=== PATIENT | female | born 1945 | race Caucasian/White ===

== ENCOUNTER → 2017-02-17 | Outpatient (CLI) | payer OTHER, BC ==
[~2017-02-17] MED LIST: ASPCH81X PO; CHOLTAB3 PO; EZET10TA63 PO; KRIL1CAP7 PO; MELO7.5T5 PO; MISCTAB78 PO; MULT-506; OXYB10TA13 PO; VITAMIN B12 PO; [UNRECOGNIZED DRUG - OTHER] PO
--- NOTE | 2017-02-18 08:27 | MAMMOGRAPHY REPORT ---
BILATERAL DIGITAL SCREENING MAMMOGRAM WITH CAD: 02/17/2017 CLINICAL HISTORY: Routine screening. Patient has no complaints. TECHNIQUE: Bilateral CC, MLO and repeat right MLO views were obtained. Current study was also evalu ated with a Computer Aided Detection (CAD) system. COMPARISON: Comparison is made to exams dated: 02/15/2016 mammogram, 02/13/2015 mammogram, 02/09/2014 mammogram, 01/18/2013 mammogram, 01/06/2011 mammogram, and 01/15/2012 mammogram - [facility]. BREAST COMPOSITION: The tissue of both breasts is heterogeneously dense, which may obscure small ma sses. FINDINGS: There are benign calcifications within the left breast. No new suspicious mass, architectural designer ural distortion or cluster of microcalcifications is seen. IMPRESSION: ACR BI-RADS CATEGORY 1: NEGATIVE There is no mammographic evidence of malignancy. A 1 year screening mammogram is recommended. The p atient will receive written notification of the results. Approximately 10% of breast cancers are not detected with mammography. A negative mammographic repor t should not delay biopsy if a clinically suggestive mass is present. Joan Penny M.D. ay/:02/17/2017 15:52:39 Pharmacy Data Analyst: Cary OLIVEIRA(Arpan)(M), [facility] letter sent: Normal 1/2 BI-RADS Code: ACR BI-RADS Category 1: Negative
== END | disposition home or self-care (01) ==
LOC: C.MAMM 08:38
PROVIDERS: ATTEND Nurse Practitioner
DX: Z12.31 Encounter for screening mammogram for malignant neoplasm of breast (principal)

== ENCOUNTER → 2017-07-27 | Outpatient (CLI) | payer OTHER, BC ==
[~2017-07-27] MED LIST changes: -ASPCH81X PO; -KRIL1CAP7 PO; -MISCTAB78 PO; -OXYB10TA13 PO; -VITAMIN B12 PO; -[UNRECOGNIZED DRUG - OTHER] PO
[2017-07-27 17:52] LABS: URINE APPEARANCE CLEAR (CLEAR); URINE BILIRUBIN NEG (NEG); URINE COLOR YELLOW; URINE NITRITE NEG (NEG); URINE SPECIFIC GRAVITY 1.022 (1.000-1.030); UROBILINOGEN NEG (NEG)
[2017-07-27 17:56] LABS: MANUAL MICROSCOPIC REQUIRED? NO; REVIEW REQ? NO
== END | disposition home or self-care (01) ==
LOC: C.LABSPEC 09:56
PROVIDERS: ATTEND Physician Assistant Medical
DX: R39.9 Unspecified symptoms and signs involving the genitourinary system (principal)

== ENCOUNTER → 2017-09-29 | Outpatient (CLI) | payer OTHER, BC ==
[~2017-09-29] MED LIST changes: +ASPCH81X PO; -CHOLTAB3 PO; -EZET10TA63 PO; +KRIL1CAP7 PO; -MELO7.5T5 PO; +MISCTAB78 PO; -MULT-506; +OXYB10TA13 PO; +VITAMIN B12 PO; +[UNRECOGNIZED DRUG - OTHER] PO
[2017-09-29 12:26] LABS: AST/SGOT 16 U/L (15-37); BLOOD UREA NITROGEN 24 mg/dl (7-18); BUN/CREATININE RATIO 21.7 (10-20); CALCIUM 9.3 mg/dl (8.5-10.1); CARBON DIOXIDE 28 mmol/L (21-32); CHLORIDE 104 mmol/L (98-107); CREATININE 1.09 mg/dl (0.60-1.20); GLUCOSE 100 mg/dl (70-99); POTASSIUM 4.7 mmol/L (3.5-5.1); SODIUM 137 mmol/L (136-145)
[2017-09-29 12:30] LABS: ALB/GLOB RATIO 1.2 (0.9-2); ALKALINE PHOSPHATASE 71 U/L (45-117); ALT/SGPT 29 U/L (12-78); CHOLESTEROL 230 mg/dl (0-200); CHOLESTEROL/HDL RATIO 4.7; ESTIMATED AVERAGE GLUCOSE 114 mg/dl; HA1C FLAG Normal (Normal); HDL CHOLESTEROL 49 mg/dl; LDL CHOLESTEROL CALCULATED 138 mg/dl; TRIGLYCERIDES 215 mg/dl (0-150); VERY LOW DENSITY LIPOPROT CALC 43 mg/dl
== END | disposition home or self-care (01) ==
LOC: C.LABBFT 07:38
PROVIDERS: ATTEND Nurse Practitioner
DX: R73.01 Impaired fasting glucose (principal); E78.00 Pure hypercholesterolemia, unspecified

== ENCOUNTER → 2017-10-06 | Day surgery (SDC) | payer OTHER, BC ==
[2017-09-23 12:15] VITALS: Ht 166.4 cm; Wt 84.1 kg
[~2017-10-06] VITALS: Ht 166.4 cm; Wt 84.1 kg
[~2017-10-06] MED LIST changes: +LIDOCAINE HCL 2% 2 ML VIAL (20MG/ML) ONE; +PROPOFOL IV EMULSION 10 MG/ML 20 ML VIAL IV ONE; +SODIUM CHLORIDE 0.9% 500ML 500 ML IV ONE
[2017-10-06 09:48] VITALS: TEMP 36.5
--- NOTE | 2017-10-06 10:26 | Endo History and Physical ---
History & Physical Date of Service: Oct 06, 2017. Chief Complaint: screening Referring Physician: Winnie WHEAT History of Present Illness 71 yo CF who presents for screening colonoscopy. Past Surgical History Hx Cardiac Surgery: No Hx Internal Defibrillator: No Hx Pacemaker: No Hx Abdominal Surgery: Yes (TAHBSO) Hx of Implantable Prosthesis: No Hx Post-Op Nausea and Vomiting: No Hx Cancer Surgery: No Hx Thoracic Surgery: No Hx Orthopedic: No Hx Urinary Tract Surgery: No Family History None Social History Smoking Status: Never Smoker Hx Substance Use: No Hx Alcohol Use: No Allergies Coded Allergies: Statins (Verified Allergy, Unknown, CHEST PAIN, 09/23/17) Current Medications Reported Home Medications Medications Dose Route/Sig Max Daily Dose Days Date Category [Ultranol] 1 Cap PO QAM 09/23/17 Reported Osteo Bi-Flex Advanced Do (Misc Natural Products) 1 Tab Tab 1 Tab PO QAM 09/23/17 Reported Aspirin Chewable (Aspirin) 81 Mg Chew 81 Mg PO QAM 09/23/17 Reported Krill Oil [employer]-3 (Krill Oil) 1 Cap Cap 1 Cap PO QAM 09/23/17 Reported [Vitamin B12] 2,500 Mcg PO QAM 09/23/17 Reported Ditropan Xl (Oxybutynin Chloride) 10 Mg Tab 10 Mg PO 3XWK 09/23/17 Reported Vital Signs Weight (Kilograms): 84.09 Height (Feet): 5 Height (Inches): 5.5 Date Time Temp Pulse Resp B/P (MAP) Pulse Ox O2 Delivery O2 Flow Rate FiO2 10/06/17 09:48 36.5 67 20 158/79 (105) 95 Room Air Physical Exam General Appearance: WD/WN, no apparent distress Respiratory/Chest: Auscultation: breath sounds normal Cardiovascular: Heart Auscultation: RRR Abdomen: Bowel Sounds: normal Inspection & Palpation: soft, non-distended, no tenderness, guarding & rebound Assessment and Plan Assessment: 71 yo CF who presents for screening colonoscopy. Plan: Proceed with colonoscopy.
--- NOTE | 2017-10-06 11:22 | Discharge Instructions ---
Endoscopy Patient Instructions Date / Procedure(s) Performed Oct 06, 2017. Colonoscopy Allergy Information Coded Allergies: Statins (Verified Allergy, Unknown, CHEST PAIN, 09/23/17) Discharge Date / Findings Oct 06, 2017. Internal hemorrhoids Medication Instructions Stopped Medication(s): took ASA yesterday OK to resume all medications today as prescribed Reported Home Medications Medications Dose Route/Sig Max Daily Dose Days Date Category [Ultranol] 1 Cap PO QAM 09/23/17 Reported Osteo Bi-Flex Advanced Do (Misc Natural Products) 1 Tab Tab 1 Tab PO QAM 09/23/17 Reported Aspirin Chewable (Aspirin) 81 Mg Chew 81 Mg PO QAM 09/23/17 Reported Krill Oil [employer]-3 (Krill Oil) 1 Cap Cap 1 Cap PO QAM 09/23/17 Reported [Vitamin B12] 2,500 Mcg PO QAM 09/23/17 Reported Ditropan Xl (Oxybutynin Chloride) 10 Mg Tab 10 Mg PO 3XWK 09/23/17 Reported Provider Instructions Activity Restrictions - No exercising or heavy lifting for 24 hours. - Do not drink alcohol the day of the procedure. - Do not drive a car or operate machinery until the day after the procedure. - Do not make any important decisions or sign important papers in 24 hours after the procedure. Following Day: - Return to full activity which may include returning to work/school. Diet Start your diet with liquids and light foods (jello, soup, juice, toast). Then eat your usual diet if not nauseated. Treatment For Common After Affects For mild abdominal pain, bloating, or excessive gas: - Rest - Eat lightly - Lie on right side Follow-Up Information Follow-up with Winnie WHEAT as scheduled Anesthesia Information What You Should Know You have had a procedure that required some medicine to reduce anxiety and discomfort. This treatment is called moderate sedation. After receiving the treatment, you may be sleepy, but you will be able to breathe on your own. The effects of the treatment may last for several hours. Follow these instructions along with Activity/Diet recommendations noted above: * Do NOT do anything where dizziness or clumsiness would be dangerous. * Rest quietly at home today, then you can be up and about tomorrow. * Have a responsible person stay with you the rest of today. * You may have had an I.V. today. If so, you may take the dressing off later today. Recommendations Call your doctor if: * Trouble breathing * Continuous vomiting for more than 24 hours * Temperature above 101 degrees * Severe abdominal pain or bloating * Pain not relieved by pain medicine ordered * There is increased drainage or redness from any incision * A large amount of rectal bleeding greater than 2-3 tablespoons. (If you had a polyp/s removed or have hemorrhoids, a small amount of blood - from the rectum is to be expected.) * You have any unanswered questions or concerns. IN THE EVENT OF A SERIOUS EMERGENCY, GO TO THE NEAREST EMERGENCY ROOM Your discharge instructions were prepared by provider Wilber Maynard. Patient Instructions Signature Page Alissa Santiago Patient (or Guardian) Signature/Date: I have read and understand the instructions given to me by my caregivers. Caregiver/RN/Doctor Signature/Date: The above-named patient and/or guardian has received patient instructions on this date. + Original Patient Signature Page (only) stays with chart. Please make copy for patient.
--- NOTE | 2017-10-06 11:26 | GI REPORT ---
Procedure Date: 10/06/2017 10:42 AM Procedure: Colonoscopy Indications: Screening for colorectal malignant neoplasm Medicines: Monitored Anesthesia Care Complications: No immediate complications. Estimated Blood Loss: Estimated blood loss: none. Procedure: Pre-Anesthesia Assessment: - Prior to the procedure, a History and Physical was performed, and patient medications and allergies were reviewed. The patient's tolerance of previous anesthesia was also reviewed. The risks and benefits of the procedure and the sedation options and risks were discussed with the patient. All questions were answered, and informed consent was obtained. Prior Anticoagulants: The patient has taken aspirin, last dose was 1 day prior to procedure. ASA Grade Assessment: II - A patient with mild systemic disease. After reviewing the risks and benefits, the patient was deemed in satisfactory condition to undergo the procedure. After I obtained informed consent, the scope was passed under direct vision. Throughout the procedure, the patient's blood pressure, pulse, and oxygen saturations were monitored continuously. The Scope was introduced through the anus and advanced to the terminal ileum. The colonoscopy was performed without difficulty. The patient tolerated the procedure well. The quality of the bowel preparation was good. The terminal ileum, the ileocecal valve and the appendiceal orifice were photographed. Findings: The perianal and digital rectal examinations were normal. Non-bleeding internal hemorrhoids were found during retroflexion. The hemorrhoids were small. Impression: - Non-bleeding internal hemorrhoids. - No specimens collected. Recommendation: - Resume previous diet. - Continue present medications. - No repeat colonoscopy due to age and the absence of advanced adenomas. - Return to primary care physician as previously scheduled. Wilber Maynard, 10/06/2017 11:25:36 AM This report has been signed electronically. Note Initiated On: 10/06/2017 10:42 AM I attest to the content of the Intraoperative Record and orders documented therein, exceptions below
--- NOTE | 2017-10-06 11:34 | Anesthesiology Progress Note ---
Anesthesia Post Op Note Date & Time Oct 06, 2017 at 11:33 Vital Signs Pain Intensity: 0 Vital Signs Past 12 Hours Date Time Temp Pulse Resp B/P (MAP) Pulse Ox O2 Delivery O2 Flow Rate FiO2 10/06/17 11:24 82 16 123/67 (85) 98 Room Air 10/06/17 09:48 36.5 67 20 158/79 (105) 95 Room Air Notes Mental Status: alert / awake / arousable, participated in evaluation Pt Amnestic to Procedure: Yes Nausea / Vomiting: adequately controlled Pain: adequately controlled Airway Patency, RR, SpO2: stable & adequate BP & HR: stable & adequate Hydration State: stable & adequate Anesthetic Complications: no major complications apparent
[2017-10-06 11:53] VITALS: BP 122/81; PULSE 68; O2SAT 97
== END | disposition home or self-care (01) ==
LOC: C.GI 08:59
PROVIDERS: ATTEND Internal Medicine
DX: Z12.11 Encounter for screening for malignant neoplasm of colon (principal); K64.8 Other hemorrhoids; Z79.82 Long term (current) use of aspirin

== ENCOUNTER → 2018-01-21 | Outpatient (CLI) | payer OTHER, BC ==
[~2018-01-21] VITALS: Ht 167.6 cm; Wt 85.4 kg
[~2018-01-21] MED LIST changes: -LIDOCAINE HCL 2% 2 ML VIAL (20MG/ML) ONE; -PROPOFOL IV EMULSION 10 MG/ML 20 ML VIAL IV ONE; -SODIUM CHLORIDE 0.9% 500ML 500 ML IV ONE
[2018-01-21 09:39] VITALS: BP 155/69; PULSE 63; Ht 167.6 cm; Wt 85.4 kg
== END | disposition home or self-care (01) ==
LOC: C.NEUR 08:56
PROVIDERS: ATTEND Internal Medicine Pulmonary Disease
DX: G47.33 Obstructive sleep apnea (adult) (pediatric) (principal); F41.9 Anxiety disorder, unspecified

== ENCOUNTER → 2018-01-26 | Outpatient (CLI) | payer OTHER, BC ==
--- NOTE | 2018-01-27 05:29 | PAP/PSG TECHNICIAN REPORT ---
[facility] Aluminum Pourer Polysomnogram Report Study name: None Report date: 01/27/2018 Study date: 01/26/2018 Referring Physician: Dr. Connor Moran DO Name: LISSA DAVISON Interpreting Physician: Connor Moran D.O. Date of : 1945 Aluminum Pourer: Yenni Cloud RPSGT. Sex: Female Age: 72 Study Type: PSG Weight: 188 lbs Height: 72 years, Height 5' 6" BMI: 30.34 Medications: ASPIRIN 81 MG, OSTEO-BIFLEX, FISH OIL, OXYBUTYNIN CHLORIDE 10 MG, VIT D 2000 UNIT Patient History 72 yr-old female here for a baseline study. She has a history of daytime sleepiness, snoring, witnessed apneas, and waking up with a gasping sensation. Her [place] scale is 18. The test was started on room air. ETCO2 testing was not utilized during this study. Room 1 Parameters Monitored NPSG: E1-M2, E2-M1, Fp1-M2, Fp2-M1, F3-M2, F4-M2, F4-M1, C3-M2, C4-M2, C4-M1, O1-M2, O2-M2, O2-M1, T3-M2, T4-M1, P3-M2, P4-M1, CHIN1, CHIN2, HR, EKG, Legs, PFLOW, SNOR, FLOW, CFLOW, Tidal Volume, THOR, ABDO, SpO2, PLTH, CPRESS, ETCO2 Wave, ETCO2, pH Sleep Architecture Sleep Stages Time at Lights Off 9:42:18 PM STAGES Time (min.) TST (%) Time at Lights On 4:43:48 AM Wake 65.0 -- Total Recording Time (TRT) 421.50 min. N1 31.0 9 Total Sleep Period (TSP) 407.5 min. N2 178.0 50 Total Sleep Time (TST) 356.5min. N3 67.5 19 Awake Time 65.0 min. REM 80.0 22 Wake after Sleep Onset 61.5 min. Sleep Efficiency (SE) 85 % Sleep Onset Latency (REID) 3.5 min. Number of Stage 1 Shifts None Awakenings 18 Stage Changes 88 Number of REM periods 4 REM 80.0 22 REM Latency 157.0 min. NREM 276.5 78 Body Position Analysis Supine Right Left Side Prone Vertical Total Sleep Time (min.) 222.8 45.0 101.9 146.92 0.0 0.0 Total Sleep Time (%) 59% 13% 29% 41 0% N/A% Total Sleep Time REM (min.) 80.0 0.0 0.0 None 0.0 0.0 Total Sleep Time NREM (min.) 129.6 45.0 101.9 None 0.0 0.0 Intermittent Wake (min.) 13.3 21.6 30.1 None 0.0 0.0 Total Sleep Period (%) 52% None None None None None Arousals Myoclonus (PLM) * Events Count Index Events Count Index Spontaneous 32 5 Events Awake (PLMW) 122 112.6 Respiratory 12 2.0 Events Asleep w/ Arousal (PLMA) 41 6.9 PLM 40 7 Events Asleep w/o Arousal (PLMS) 148 24.9 Snoring 8 1 Total Asleep 189 31.8 Total 92 15 Total 311 44 Respiratory Analysis * CA OA MA CH H RERA Total Count 0 43 0 0 82 2 125 Index 0.0 7.2 0.0 0 13.8 0 21.4 Mean Duration 0.0 22.2 0.0 0.00 20.4 19.5 21.0 Longest Duration 0.0 59.1 0.0 0.00 0.0 19.5 59.1 Respiratory Event Summary Total Supine ~Supine Right Left Prone REM NREM Apneas Count 43 43 0 0 0 N/A 42 1 Index 7.2 12 0 0.0 0.0 N/A 32 0 Hypopneas (4% Desat) Count 82 77 5 2 3 N/A 40 42 Index 13.8 22.0 2 2.7 1.8 N/A 30.0 9.1 Apneas & All Hypopneas Count 125 120 5 2 3 N/A 82 43 Index 21.0 34 2 3 2 N/A 61.5 9.3 Respiratory Events (Magazine Supervisor+All Hyp+RERA) Count 125 120 7 3 4 N/A 82 43 Index 21.4 34 3 4.0 2.4 N/A 61.5 9.8 Respiratory Related Arousal Count 12 120 4 3 1 N/A 4 8 Index 2.0 2 2 4 1 N/A 3 2 Snoring Analysis Supine Right Left Prone REM NREM Total Snore duration 16.3 min Snores count 196 166 488 N/A 119 731 850 Snore mean duration 1.2 Sec Snores index 56 221 287 N/A 89.3 158.6 143.1 TST with snoring (%) 4.6% Desaturation Event Summary: Minimum %SpO2 Event Count Mean/Min/Max Duration(sec.) Desaturation Index % Time In Bed > 90 140 28.3 / 7.5 / 60.0 25.6 80.7 86 - 90 15 16.9 / 7.8 / 31.8 15.5 14.3 81 - 85 7 15.3 / 10.8 / 28.5 30.7 3.4 76 - 80 2 23.3 / 18.0 / 28.5 22.2 1.3 71 - 75 0 N/A 0.0 0.4 66 - 70 0 N/A 0.0 0.0 61 - 65 0 N/A 0.0 0.0 56 - 60 0 N/A 0.0 0.0 51 - 55 0 N/A 0.0 0.0 < 50 0 N/A 0.0 0.0 Total REM NREM Awake <50% 0.0 min. 0.0 min. 0.0 min. 0.0 min. 51 - 60% 0.0 min. 0.0 min. 0.0 min. 0.0 min. 61 - 70% 0.0 min. 0.0 min. 0.0 min. 0.0 min. 71 - 80% 7.0 min. 6.9 min. 0.1 min. 0.0 min. 81 - 90% 71.7 min. 30.7 min. 40.1 min. 1.0 min. 91 - 100% 328.7 min. 42.4 min. 236.3 min. 49.9 min. Average 92 90 92 95 Minimum SpO2 71 71 79 81 Desaturation Event Index 21.8 58.5 14.1 10.2 # Desat. Events below 89% 84 64 20 N/A Time(%) with Saturation below 89% 8.5 7.2 1.3 0.1 Time(min.) with Saturation below 89% 34.6 29.2 5.2 0.2 Time (mins) REM (mins) NREM (mins) % of TST SpO2 Below 90% 126 72 N54 13.6 SpO2 Below 88% 41 0 0 8 Heart Rate Analysis Min (bpm) Max (bpm) Average (bpm) Awake 55 100 70 NREM 55 102 67 REM 62 99 74 Overall 55 102 68 Supplemental O2 Values Minimum O2 level: None Value Start Time End Time Aluminum Pourer Comments Ms. Davison slept in the right, left, and supine positions. No cardiac arrhythmias were noted. PLMs were noted. No bruxism noted. Snoring was noted and scored as a 2-3 on a scale of 1 through 5. (0=no snoring, 5=snoring loud enough to be heard through a closed door or down the morris way) She awoke to use the restroom one time during the night. Ms. Davison stated that she slept about the same as usual. The final report will be interpreted and signed by a sleep physician. The completed physician report will then be placed in the patient medical record. Therapy (cm H2O) 0 TIB (min.) 421.5 TST (min.) 356.5 Sleep Onset (min.) 3.5 REM Onset From Sleep (min.) 157.0 Sleep Efficiency % 85 Wakefulness (%) 15 Wakefulness (min.) 65.0 NREM 1 (%) 9 NREM 1 (min.) 31.0 NREM 2 (%) 50 NREM 2 (min.) 178.0 NREM 3 (%) 19 NREM 3 (min.) 67.5 REM (%) 22 REM (min.) 80.0 # Arousals 92 Arousal Index 15 # Snore 850 Snore Index 143.1 AHI 21.0 AHI Supine 34 AHI Non-Supine 2 NREM AHI 9.3 REM AHI 61.5 RDI 21.4 # Obstructive Apnea 43 # Central Apnea 0 # Mixed Apnea 0 # Hypopneas 82 RERAs 2 Total Respiratory Events 129 Time Below SpO2 89% (min.) 34.4 Mean NREM SpO2 (%) 92 Mean REM SpO2 (%) 90 Mean Sleep SpO2 (%) 92 Min NREM SpO2 (%) 79 Min REM SpO2 (%) 71 Position Supine (min.) 222.8 Position Non-supine (min.) 146.9 LM Index Sleep 31.8 LM Index NREM 34.9 LM Index REM 21.0 Mean Heart Rate (bpm) 68 Min Heart Rate (bpm) 55
--- NOTE | 2018-02-01 07:51 | POLYSOMNOGRAPH REPORT ---
SLEEP STUDY REPORT DATE OF STUDY: 01/26/2018. CLINICAL DATA: The patient is a 72-year-old female with a history of snoring, disturbed nocturnal sleep, and excessive daytime somnolence. Her [place] sleepiness scale score is 18 out of a possible 24. Her BMI is 30.34. This was an in-lab overnight polysomnography. SLEEP ARCHITECTURE: The total sleep period was 407.5 minutes. The total sleep time was 356.5 minutes. The sleep efficiency was mildly reduced to 85%. The sleep latency was normal at 3.5 minutes. Wake after sleep onset was 61.5 minutes. The REM latency was prolonged to 157 minutes. There were 3 REM periods during the night. Sleep consisted of stage N1 9%, stage N2 50%, stage N3 19%, stage REM 22%. AROUSAL DATA: The patient had a total of 92 arousals including 32 spontaneous arousals, 12 respiratory arousals, 40 PLM arousals, and 8 snoring arousals. The arousal index was 15. PLM DATA: The patient had 189 periodic limb movements of sleep for a PLM index of 31.8. There were 41 arousals, associated with limb movements for a PLM arousal index of 6.9. EKG: The cardiac rates ranged from 55-102 beats per minute. The average heart rate was 68 beats per minute. No cardiac arrhythmias were noted. RESPIRATORY DATA: The patient had a total of 125 respiratory events including 43 obstructive apneas and 82 hypopneas. Hypopneas were scored according to the 4% desaturation rule. There were also 2 RERAs. The mean duration of hypopneas was 20.4 seconds. The longest duration of apnea was 59.1 seconds. The apnea hypopnea index was elevated at 21.0 events per hour. This reflects moderate obstructive sleep apnea. OXIMETRY DATA: The average saturation for the night was 92%. The minimum saturation was 71%. The significant desaturations were occurring mainly during REM sleep and supine. There was 34.6 minutes with saturations less than 89%. UM NURSE COMMENTS: The patient slept in the right, left, and supine positions. No cardiac arrhythmias were noted. PLMs were noted. No bruxism noted. Snoring was noted and scored as a 2-3 on a scale of 1 through 5. She awakened to use the restroom one time during the night. She stated that she slept about same as usual. IMPRESSION: 1. Moderate obstructive sleep apnea. 2. Periodic limb movement disorder. COMMENTS: The patient has moderate sleep apnea. This resulted in significant oxygen desaturations. The events were increased during the supine position where her AHI was 34. The events were increased during REM where her AHI was 61.5. She did have a moderate number of limb movements. These likely required no treatment at present. The underlying sleep apnea should be treated first. RECOMMENDATIONS: 1. It is advised that the patient be given a trial of nasal CPAP. This could be accomplished either by a CPAP titration or by auto CPAP. 2. The patient is advised to avoid sleeping in the supine position. 3. Weight loss is advised in light of the elevation of body mass index at 30.34. 4. The patient should be advised of the appropriate principles of sleep hygiene including having a regular sleep-wake schedule and allowing 7.5 hours of sleep or more.
== END | disposition home or self-care (01) ==
LOC: C.NEUR 20:00
PROVIDERS: ATTEND Internal Medicine Pulmonary Disease
DX: G47.33 Obstructive sleep apnea (adult) (pediatric) (principal); G47.61 Periodic limb movement disorder

== ENCOUNTER → 2018-03-02 | Outpatient (CLI) | payer OTHER, BC ==
--- NOTE | 2018-03-02 15:05 | MAMMOGRAPHY REPORT ---
BILATERAL DIGITAL SCREENING MAMMOGRAM TOMOSYNTHESIS WITH CAD: 03/02/2018 CLINICAL HISTORY: Routine screening. Patient has no complaints. TECHNIQUE: Breast tomosynthesis in addition to standard 2D mammography was performed. Current study was also evaluated with a Computer Aided Detection (CAD) system. COMPARISON: Comparison is made to exams dated: 02/17/2017 mammogram, 02/13/2015 mammogram, 02/15/2016 ma mmogram, 02/09/2014 mammogram, 01/18/2013 mammogram, and 01/15/2012 mammogram - [facility] ter. BREAST COMPOSITION: The tissue of both breasts is heterogeneously dense, which may obscure small mas ses. FINDINGS: The parenchymal pattern is unchanged. No developing mass, architectural distortion or clus ter of suspicious microcalcifications is seen in either breast. IMPRESSION: ACR BI-RADS CATEGORY 2: BENIGN There is no mammographic evidence of malignancy. A 1 year screening mammogram is recommended. The pa tient will receive written notification of the results. Approximately 10% of breast cancers are not detected with mammography. A negative mammographic report should not delay biopsy if a clinically suggestive mass is present. Joan Penny M.D. ay/:03/02/2018 09:10:38 Karate Instructor: Arpan He, M, [facility] letter sent: Normal 1/2 BI-RADS Code: ACR BI-RADS Category 2: Benign
== END | disposition home or self-care (01) ==
LOC: C.MAMM 08:38
PROVIDERS: ATTEND Nurse Practitioner
DX: Z12.31 Encounter for screening mammogram for malignant neoplasm of breast (principal)